=== PATIENT | female | born 1970 | race Caucasian/White ===

== ENCOUNTER 2023-12-19 06:27 | Day surgery (SDC) | payer OTHER ==
[~2023-12-19] VITALS: Ht 162.6 cm; Wt 83.5 kg
[2023-12-19] MEDS ORDERED: MIDAZOLAM 2 MG/2 ML VIAL ONE (07:50)
[2023-12-19] MEDS ORDERED: fentaNYL citrate 0.05 MG/ML VIAL ONE (07:50)
[2023-12-19] MEDS: MIDAZOLAM 2 MG/2 ML VIAL IVP ONE (09:15)
[2023-12-19] MEDS: fentaNYL citrate 0.05 MG/ML VIAL IVP ONE (09:16)
[2023-12-19] MEDS: LIDOCAINE 2% 100 MG/5 ML UJET TP ONE (09:27)
== END 2023-12-19 10:55 | disposition home or self-care (01) ==
LOC: MDS 06:27 → MMU 06:31 → MDS 10:55
PROVIDERS: ATTEND Internal Medicine Gastroenterology
DX: Z12.11 Encounter for screening for malignant neoplasm of colon (principal); R10.13 Epigastric pain; K29.70 Gastritis, unspecified, without bleeding; K29.80 Duodenitis without bleeding; G43.909 Migraine, unspecified, not intractable, without status migrainosus; Z98.51 Tubal ligation status; Z79.899 Other long term (current) drug therapy; Z98.890 Other specified postprocedural states
CPT/HCPCS: 36415; 43239; 45378; 82948; 86677; J2250; J3010